=== PATIENT | female | born 1955 | race African-American/Black ===

== ENCOUNTER 2020-09-09 10:55 | Outpatient (CLI) | payer BC, SELFPAY ==
--- NOTE | ~2020-09-09 | XR_ITS ---
XR chest 2V 09/09/2020 11:26 Indication: Productive cough. Smoker. Procedure: PA and lateral views of the chest Comparison: No prior studies for comparison. Findings: There are coarse interstitial infiltrates of the lower lung zones. Heart size normal. There is atherosclerosis. No edema or pneumothorax. No acute osseous abnormality. Impression: 1: Coarse interstitial infiltrates of the lower lung zones which may represent pulmonary fibrosis, at electasis or pneumonia. Reviewed, dictated and finalized at location B. Impression: 1: Coarse interstitial infiltrates of the lower lung zones which may represent pulmonary fibrosis, atelectasis or pneumonia.
== END 2020-09-09 10:56 | disposition home or self-care (01) ==
PROVIDERS: PCP Family Medicine; Visit Provider Family Medicine
DX: R05 Cough (principal); Z72.0 Tobacco use
CPT/HCPCS: 71046

== ENCOUNTER 2020-11-23 10:01 | Outpatient (CLI) | payer BC, SELFPAY ==
--- NOTE | 2020-11-23 12:31 | WPDPFTINT ---
PFT Procedure Performed PFT Procedure Performed Plethysmography (Lung Vol) Diffusing Cap (DLCO) Flow Vol Loop Spirometry w/o Bronchodil PFT Interpretation This is a pulmonary function test with spirometry, plethysmography and diffusing capacity. The test was performed and results interpreted in accordance with the 2019 and 2005 ATS/ERS Task Force guidelines respectively using the Global Lung Function Initiative-2012 reference equations. Patient demonstrated good effort and cooperation. Reproducibility criteria were met. The quality of the spirometry maneuver was Grade B. Findings: Spirometry: the contour the inspiratory and expiratory flow tracing are normal. The FVC is 2.50 L, 99% predicted. The FEV1 is 1.97 L, 99% predicted. The FEV1: FVC ratio 79%. Plethysmography: The total lung capacity is 4.24 L, 98% predicted. The functional residual capacity is 2.62 L, 99% predicted. The residual volume is 1.74 L, 93% predicted. Diffusing capacity: The absolute diffusion capacity is 9.3, 45% predicted. The diffusing capacity corrected for alveolar volume is 2.86, 65% predicted. Impression: The spirometry is normal without evidence of an obstructive abnormality. There is no significant improvement after inhaling a single dose of albuterol. The lung volumes are normal. The absolute diffusing capacity is moderately decreased and remains mildly decreased when corrected for alveolar volume. There are no prior studies for comparison
== END 2020-11-23 10:02 | disposition home or self-care (01) ==
PROVIDERS: PCP Family Medicine; Visit Provider Family Medicine
DX: R05 Cough (principal); Z72.0 Tobacco use
CPT/HCPCS: 94375; 94726; 94729